=== PATIENT | male | born 1960 | race Caucasian/White ===

== ENCOUNTER 2016-12-19 10:23 | Inpatient (IN) | payer BC ==
--- NOTE | ~2016-12-19 | EGD ---
EGD REPORT [facility] [address] [place] [place] [address] NAME: JOSELUIS BEDOLLA : 58 STATUS : ADM IN PAT#: [id number] AGE: 56 ADM/REG DATE : 12/19/16 MR#: [id number] REPORT SERV DATE: 12/22/16 DICTATED BY: UMA CHENG DATE: 12/22/16 REPORT STATUS : Draft TRANSCRIBED BY: [facility] DATE: 12/22/16 [facility] Patient Name: Joseluis Bedolla Date of : 1960 Attending MD: UMA CHENG MD Procedure Date No Time: 12/22/2016 Procedure: ERCP Indications: Abnormal MRCP, Bile duct stone(s) Medicines: General Anesthesia Complications: No immediate complications. Procedure: Pre-Anesthesia Assessment: - ASA Grade Assessment: III - A patient with severe systemic disease. After obtaining informed consent, the scope was passed under direct vision. Throughout the procedure, the patient's blood pressure, pulse, and oxygen saturations were monitored continuously. The TJF Q180V [id number] was introduced through the mouth, and advanced to the duodenum and used to inject contrast into the bile duct. The ERCP was accomplished without difficulty. The patient tolerated the procedure well. Findings: The clam digger film was normal. The major papilla was normal. A 0.035 inch straight standard wire was passed into the biliary tree. The short-nosed traction autotome was passed over the guidewire and the bile duct was then deeply cannulated. Contrast was injected. The main bile duct was diffusely dilated, with a stone causing an obstruction. A 12 mm biliary sphincterotomy was made with a Autotome sphincterotome using ERBE electrocautery. There was no post-sphincterotomy bleeding. The middle third of the main bile duct contained filling defect(s) thought to be a stone. The biliary tree was swept with a 12 mm balloon starting at the bifurcation. All stones were removed. Impression: - The major papilla appeared normal. - The entire main bile duct was dilated, with a stone causing an obstruction. - A filling defect consistent with a stone was seen on the cholangiogram. - Choledocholithiasis was found. Complete removal was accomplished by biliary sphincterotomy and balloon extraction. Recommendation: - Avoid aspirin and nonsteroidal anti-inflammatory medicines. EGD REPORT [address] [address] NAME: JOSELUIS BEDOLLA : 58 STATUS : ADM IN [facility]#: [id number] AGE: 56 ADM/REG DATE : 12/19/16 MR#: [id number] REPORT SERV DATE: 12/22/16 DICTATED BY: UMA CHENG DATE: 12/22/16 REPORT STATUS : Draft TRANSCRIBED BY: [facility] DATE: 12/22/16 - Check amylase, lipase, liver enzymes (AST, ALT, alkaline phosphatase, bilirubin), hemogram with white blood cell count and platelets and electrolyte panel tonight. - Check amylase, lipase, liver enzymes (AST, ALT, alkaline phosphatase, bilirubin), hemogram with white blood cell count and platelets and electrolyte panel in the morning. - Clear liquid diet. - Continue present medications. - Return patient to [facility] for ongoing care. Procedure Code(s): --- Professional --- 95268, Endoscopic retrograde cholangiopancreatography (ERCP); with removal of calculi/debris from biliary/pancreatic duct(s) 04050, Endoscopic retrograde cholangiopancreatography (ERCP); with sphincterotomy/papillotomy Diagnosis Code(s): --- Professional --- K80.50, Calculus of bile duct without cholangitis or cholecystitis without obstruction K80.31, Calculus of bile duct with cholangitis, unspecified, with obstruction K80.33, Calculus of bile duct with acute cholangitis with obstruction K80.35, Calculus of bile duct with chronic cholangitis with obstruction K80.37, Calculus of bile duct with acute and chronic cholangitis with obstruction K80.51, Calculus of bile duct without cholangitis or cholecystitis with obstruction R93.2, Abnormal findings on diagnostic imaging of liver and biliary tract CPT copyright 2013 [employer]. All rights reserved. The codes documented in this report are preliminary and upon bite block maker review may be revised to meet current compliance requirements. Uma Cheng MD UMA CHENG MD 12/22/2016 4:25 PM This report has been signed electronically. Number of Addenda: 0 EGD REPORT [place] [address] [id number] NAME: JOSELUIS BEDOLLA : 58 STATUS : ADM IN [facility]#: [id number] AGE: 56 ADM/REG DATE : 12/19/16 MR#: [id number] REPORT SERV DATE: 12/22/16 DICTATED BY: UMA CHENG DATE: 12/22/16 REPORT STATUS : Draft TRANSCRIBED BY: [facility] DATE: 12/22/16 Note Initiated On: 12/22/2016 3:21 PM [place] [id number]
--- NOTE | ~2016-12-19 | CN ---
Consultation Report [facility] [address] [place]. [address] NAME: JOSELUIS PUGH : 58 STATUS : ADM IN [facility]#: [id number] AGE: 56 ADM/REG DATE : 12/19/16 MR#: [id number] REPORT SERV DATE: 12/19/16 DICTATED BY: CHEKO WOODRUFF DATE: 12/19/16 REPORT STATUS : Draft TRANSCRIBED BY: MODL DATE: 12/19/16 CONSULTATION DATE OF CONSULTATION: 12/19/2016 HISTORY OF PRESENT ILLNESS: This is a 56-year-old white male, whom I am seeing for Dr. Peguero with one-week history of abdominal pain, status post cholecystectomy three years ago. History of Hepatitis C was treated in 2013 and no recurrence. No nausea or vomiting, no fever, no bleeding. History of elbow surgery. CT done at [facility] earlier today showed dilated intra and extrahepatic biliary ducts. ALT was 640, AST 282, alkaline phosphatase 143, total bilirubin 4.7. White count of 8000, hemoglobin 7.4. Lipase normal at 36. PHYSICAL EXAMINATION: GENERAL: Well-nourished, well-nourished white male, alert and oriented x3. HEENT: Anicteric. CHEST: Clear. HEART: Regular rate and rhythm. No murmur or gallop. ABDOMEN: Soft, nontender. Present bowel sounds active. EXTREMITIES: Grossly intact. ASSESSMENT: 1. Abdominal pain and elevated LFTs as described above. CT with dilated biliary ducts intra and extrahepatic, status post cholecystectomy. 2. History of Hepatitis C with treatment. SUGGESTIONS: 1. MRCP is pending. 2. We will keep n.p.o. for possible ERCP in the a.m. Thank for this consultation. GALA/MARIE Cheko Woodruff M.D. / [id number] CC: Monica Fisher M.D. UNKNOWN Levar Peguero M.D.
--- NOTE | ~2016-12-19 | DS ---
Discharge Summary [facility] [address] [place]. [address] NAME: JOSELUIS PUGH : 58 STATUS : DIS IN PAT#: [id number] AGE: 56 ADM/REG DATE : 12/19/16 MR#: [id number] REPORT SERV DATE: 12/26/16 DICTATED BY: NICOLAS DANIELSON DATE: 12/25/16 REPORT STATUS : Draft TRANSCRIBED BY: MODL DATE: 12/25/16 ADMISSION DATE: 12/19/2016 DISCHARGE DATE: 12/25/2016 DISCHARGE DIAGNOSES: 1. Choledocholithiasis. 2. Post-ERCP pancreatitis. 3. History of hepatitis C. PERTINENT LABS: The patient arrived in the hospital with an elevated bilirubin of 3.0, by the time of discharge that improved to 1.5. He also had elevations in alkaline phosphatase as high as 208, it was 172 at the time of discharge. His ALT had also increased to 565, but it had improved to 231 by time of discharge. AST was elevated to 207 and improved to 60 by time of discharge. After his ERCP, the patient had an elevation in his amylase up to 1174 with an elevation of his lipase up 29,894. Both of these improved. By day of discharge, the patient had a lipase of 637. The patient had normal kidney function throughout hospital stay. He had a normal white blood cell count, normal hemoglobin, normal platelet count, and normal INR of 1.1. PERTINENT STUDIES: 1. MRCP demonstrated evidence of old cholecystectomy, but there was a stone within the common bile duct causing likely obstruction. 2. ERCP, performed by Dr. Peguero, showed a dilated bile duct with a stone causing obstruction and a filling defect by cholangiogram. There was complete removal with biliary sphincterotomy and balloon extraction. 3. A post-procedural CT scan of the abdomen and pelvis was performed on 12/25/[address] scan demonstrated no acute intraabdominal process. BRIEF SUMMARY OF HOSPITALIZATION: The patient came in with abdominal pain and evidence of elevated liver enzymes with particular elevation of the bilirubin. He was found on MRCP to have choledocholithiasis, and then on 12/22/2016, he underwent an ERCP under the care Dr. Peguero with extraction of the stone and sphincterotomy. The patient did have some increase in abdominal pain postprocedurally, consistent with a post-ERCP pancreatitis, but under supportive care, the patient's symptoms improved considerably. The patient gradually improved and had diet advanced. On the night of this discharge, he ate a full dinner at 5 p.m. in the evening, and by the time, I was evaluating him at 10:30 in the evening, he had no postprandial abdominal pain at all. No nausea and was feeling quite well. In regard to his history of hepatitis C, it was thought that this was completely treated and that elevation in liver enzymes were due to acute choledocholithiasis and not related to recurrence of hepatitis C. The patient was given followup instructions by Dr. Peguero, reuse technician, and recommended to be on a low-fat diet, per GI recommendations. Discharge Summary [address] [address] NAME: JOSELUIS PUGH : 58 STATUS : DIS IN [facility]#: [id number] AGE: 56 ADM/REG DATE : 12/19/16 MR#: [id number] REPORT SERV DATE: 12/26/16 DICTATED BY: NICOLAS DANIELSON DATE: 12/25/16 REPORT STATUS : Draft TRANSCRIBED BY: MARIE DATE: 12/25/16 DISCHARGE MEDICATION: Protonix 40 mg p.o. every other day. KPL/MARIE Nicolas Danielson M.D. / [id number] CC: Sid Menendez SAMUEL J Richard Sadowitz, M.D.
--- NOTE | ~2016-12-19 | HP ---
History And Physical [facility] [address] [place]. [address] NAME: JOSELUIS PUGH : 58 STATUS : ADM IN PAT#: [id number] AGE: 56 ADM/REG DATE : 12/19/16 MR#: [id number] REPORT SERV DATE: 12/19/16 DICTATED BY: MONICA YAN DATE: 12/19/16 REPORT STATUS : Draft TRANSCRIBED BY: MODL DATE: 12/19/16 DATE OF ADMISSION: 12/19/2016 HISTORY OF PRESENT ILLNESS: This is an extremely pleasant, 56-year-old male, who presented to [facility] as a direct admission from [facility]. The patient reported that he was not doing well for approximately one week. He was having episode of pain in the epigastric area on and off, and yesterday at 2300 hours, the pain became very severe. It is a pain like somebody punched you in the epigastric area, and it comes and goes, but when it comes, it stays there and then it gets better on its own. The patient reported that he had these episodes before also. He had cholecystectomy three years ago, and he had similar episodes after he had cholecystectomy. He was found to have elevated bilirubin and elevated liver enzymes at [facility] and transferring physician, Dr. Willett decided to transfer him to the [facility] to see education program associate for possible ERCP. His gastroenterologists, Dr. Pegueor and Dr. Reid, are covering for him today. The patient right now got better after he was given Dilaudid. He denies any pain right now. He is afebrile and doing well. PAST MEDICAL HISTORY: Known for history of cholecystectomy in 2013. History of hepatitis C, which was treated and he said that he was cured. The hepatitis C was treated by Dr. Peguero. History of elbow surgery as well. He denies any medical problems. He denies diabetes. No heart problems. No thyroid disease. MEDICATIONS: He does not take any medications except pantoprazole. SOCIAL HISTORY: No smoking. No alcohol. No recreational drug use. He is and has three children. FAMILY HISTORY: Mother at age of 89 from colon cancer. Father in 1971, he does not know what medical problems. ALLERGIES: HE HAD NO KNOWN DRUG ALLERGIES. REVIEW OF SYSTEMS: 14-point review of systems done and negative except what is stated in history of present illness. PHYSICAL EXAMINATION: GENERAL: Well-nourished, well-developed male, not in acute distress, resting quietly. VITAL SIGNS: Blood pressure 123/77, heart rate 60, respiratory rate 17, temperature 97.9, and oxygen saturation 96% on room air. HEENT: Head atraumatic, normocephalic. Conjunctivae clear. Pupils are equal and reactive to light and accommodation. Extraocular muscles are intact. NECK: Supple. Trachea is midline. No supraclavicular or cervical lymphadenopathy. LUNGS: Clear to auscultation bilaterally. Normal respiratory effort. CARDIOVASCULAR: Regular rate and rhythm. Point of maximal impulse is not displaced. ABDOMEN: Soft. There is mild tenderness in the epigastric area. There is no guarding and History And Physical [address] [address] NAME: JOSLEUIS PUGH : 58 STATUS : ADM IN [facility]#: [id number] AGE: 56 ADM/REG DATE : 12/19/16 MR#: [id number] REPORT SERV DATE: 12/19/16 DICTATED BY: MONICA YAN DATE: 12/19/16 REPORT STATUS : Draft TRANSCRIBED BY: MARIE DATE: 12/19/16 no rebound. Completely benign abdominal examination. No organomegaly. EXTREMITIES: No clubbing, cyanosis. No edema. SKIN: Normal color and turgor. PSYCHIATRIC: Normal mood and affect. NEUROLOGIC: Awake, alert, and oriented in time, place, and person. Muscle strength is 5/5 bilaterally in upper and lower extremities. IMAGING: CT scan of the abdomen and pelvis, which was done at [facility], showed intrahepatic and extrahepatic biliary ductal dilatation, status post cholecystectomy. LABORATORY DATA: His lab work, which was done at [facility], showed a total protein of 7.7, ALT 640, AST 282, alkaline phosphatase 143, total bilirubin 4.7, direct bilirubin 3.3, indirect bilirubin 1.4. Urinalysis was clear. No evidence of UTI. White count was 8, hemoglobin 17.4, hematocrit 48.6, platelet count 203, lactate acid level 1.55. His sodium was 140, potassium 3.7, ionized calcium 1.19, blood sugar 127, creatinine 1, chloride 97. Also his lipase was checked at [facility] and level was 36. ASSESSMENT AND PLAN: This is a very pleasant, 56-year-old male, who presented with epigastric right upper quadrant pain, intermittent in character, had this episode before also and picture is consistent with possible biliary duct stone. He has elevated ALT and AST, and he also has elevated direct bilirubin, so there is definitely a possibility of biliary obstruction with a dilated bile duct on the CT scan, so we are going to put him on IV fluid hydration, as well as we are going to put him on a clear liquid diet, and for his pain, we will give him reasonable control with intravenous Dilaudid as needed, it already helped at [facility]. I am going to order MRI on his abdomen for further delineation of the bile duct and to give us opportunity to visualize if there is a gallstone in the bile duct. At the same time, we will consult Dr. Reid who is on-call for Dr. Peguero. I put the patient on Protonix twice a day. We will keep him under observation status with intravenous fluid hydration. I will give him also antinausea medications as needed. We will recheck his liver function tests tomorrow. MG/MODL Monica Yan M.D. / [id number] CC: Monica Yan M.D.
[~2016-12-19 10:23] MED LIST: ADVAIR250 INH; MILK THISTLE; MULTIPLE VIT PO; PROTONIX20 MG PO; SUCR PO; VITC500 PO
[2016-12-19 12:07] LABS: INTERNATIONAL NORMAL RATI 1.1 UNITS (-); PARTIAL THROMBO TIME 25.6 SEC (22.5-37.2); PROTIME (NOT ORD) 13.7 SEC (12.0-14.5)
[2016-12-19] MEDS ORDERED: ADVIL PO (15:20)
[2016-12-19] MEDS ORDERED: PROTONIX PO (15:20)
[2016-12-19] MEDS ORDERED: VITC500 PO (15:21)
[2016-12-20 06:13] LABS: CALCIUM, SERUM 8.8 MG/DL (8.5-10.4); CHLORIDE, SERUM 108 MMOL/L (96-112); CREATININE 0.96 MG/DL (0.70-1.30); GFR AFRICAN AMERICAN 101 ML/MIN (>=60); GFR NON AFRICAN AMERICAN 87 ML/MIN (>=60); GLUCOSE, SERUM 89 MG/DL (60-99); POTASSIUM, SERUM 4.2 MMOL/L (3.5-5.3); SGOT(AST) 207 U/L (5-40); SGPT(ALT) 565 U/L (5-65); SODIUM, SERUM 144 MMOL/L (135-148); TOTAL PROTEIN 6.9 G/DL (6.0-8.5)
[2016-12-20 06:14] LABS: A/G RATIO 0.9 (0.7-1.9); ALBUMIN 3.3 G/DL (3.5-5.0); ALKALINE PHOSPHATASE 151 U/L (45-117); BUN (BLOOD UREA NITROGEN) 7 MG/DL (6-23); CO2 (CARBON DIOXIDE) 25 MMOL/L (24-34); GLOBULIN 3.6 G/DL (2.5-4.1)
[2016-12-20 07:57] LABS: BASOPHILS 0.2 %; BASOPHILS ABSOLUTE 0.01 10/3/uL (0.0-0.16); EOSINOPHILS 6.3 %; EOSINOPHILS ABSOLUTE 0.34 10/3/uL (0.0-0.53); HEMATOCRIT 42.3 % (40.0-51.0); HEMOGLOBIN 15.9 g/dL (13.6-17.8); IMMATURE GRANULOCYTES 0.4 %; IMMATURE GRANULOCYTES ABSOLUTE 0.02 10/3/uL (0.0-0.11); LYMPHOCYTES 36.6 %; LYMPHOCYTES ABSOLUTE 1.96 10/3/uL (0.67-4.30); MEAN CORPUS HGB CONC 37.6 g/dL (32.0-36.0); MEAN CORPUSCULAR HEMOGLOB 34.1 pg (26.0-34.0); MEAN CORPUSCULAR VOLUME 90.8 fL (80-100); MEAN PLATELET VOLUME 9.5 fL (9.2-13.0); MONOCYTES 9.9 %; MONOCYTES ABSOLUTE 0.53 10/3/uL (0.21-1.20); NEUTROPHILS 46.6 %; PLATELET COUNT 168 10/3/uL (150-400); RBC DISTRIBUTION WIDTH 14.1 % (12.0-16.0); RED CELL COUNT 4.66 10/6/uL (4.7-6.1); WHITE BLOOD CELLS 5.4 10/3/uL (4.5-10.5)
[2016-12-20 08:00] LABS: MANUAL DIFF NO %
[2016-12-20 08:08] LABS: PLATELET ESTIMATE ADQ (ADEQUATE); RBC MORPHOLOGY NORM (NORMAL)
[2016-12-21 05:50] LABS: BASOPHILS 0.2 %; BASOPHILS ABSOLUTE 0.01 10/3/uL (0.0-0.16); EOSINOPHILS ABSOLUTE 0.39 10/3/uL (0.0-0.53); HEMATOCRIT 41.8 % (40.0-51.0); HEMOGLOBIN 15.6 g/dL (13.6-17.8); IMMATURE GRANULOCYTES 0.2 %; IMMATURE GRANULOCYTES ABSOLUTE 0.01 10/3/uL (0.0-0.11); MEAN CORPUS HGB CONC 37.3 g/dL (32.0-36.0); MEAN CORPUSCULAR HEMOGLOB 33.8 pg (26.0-34.0); MEAN CORPUSCULAR VOLUME 90.5 fL (80-100); MEAN PLATELET VOLUME 8.5 fL (9.2-13.0); MONOCYTES 9.9 %; MONOCYTES ABSOLUTE 0.48 10/3/uL (0.21-1.20); NEUTROPHILS 42.7 %; NEUTROPHILS ABSOLUTE 2.08 10/3/uL (2.02-8.40); PLATELET COUNT 142 10/3/uL (150-400); RBC DISTRIBUTION WIDTH 13.7 % (12.0-16.0); RED CELL COUNT 4.62 10/6/uL (4.7-6.1); WHITE BLOOD CELLS 4.9 10/3/uL (4.5-10.5)
[2016-12-21 05:53] LABS: MANUAL DIFF NO %
[2016-12-21 06:09] LABS: A/G RATIO 0.9 (0.7-1.9); ALBUMIN 3.2 G/DL (3.5-5.0); BUN (BLOOD UREA NITROGEN) 9 MG/DL (6-23); CALCIUM, SERUM 8.3 MG/DL (8.5-10.4); CHLORIDE, SERUM 112 MMOL/L (96-112); CO2 (CARBON DIOXIDE) 27 MMOL/L (24-34); CREATININE 0.95 MG/DL (0.70-1.30); GFR AFRICAN AMERICAN 103 ML/MIN (>=60); GFR NON AFRICAN AMERICAN 89 ML/MIN (>=60); GLOBULIN 3.5 G/DL (2.5-4.1); GLUCOSE, SERUM 95 MG/DL (60-99); POTASSIUM, SERUM 3.8 MMOL/L (3.5-5.3); SGOT(AST) 89 U/L (5-40); SGPT(ALT) 386 U/L (5-65); SODIUM, SERUM 145 MMOL/L (135-148); TOTAL PROTEIN 6.7 G/DL (6.0-8.5)
[2016-12-21 06:15] LABS: ALKALINE PHOSPHATASE 139 U/L (45-117); TOTAL BILIRUBIN 1.5 MG/DL (0-1.2)
[2016-12-21 06:24] LABS: PLATELET ESTIMATE SLT DEC (ADEQUATE)
[2016-12-22 05:14] LABS: BASOPHILS 0.2 %; BASOPHILS ABSOLUTE 0.01 10/3/uL (0.0-0.16); EOSINOPHILS 9.2 %; EOSINOPHILS ABSOLUTE 0.51 10/3/uL (0.0-0.53); HEMATOCRIT 41.8 % (40.0-51.0); HEMOGLOBIN 15.9 g/dL (13.6-17.8); IMMATURE GRANULOCYTES 0.2 %; IMMATURE GRANULOCYTES ABSOLUTE 0.01 10/3/uL (0.0-0.11); LYMPHOCYTES 47.4 %; LYMPHOCYTES ABSOLUTE 2.63 10/3/uL (0.67-4.30); MEAN CORPUSCULAR HEMOGLOB 34.2 pg (26.0-34.0); MEAN CORPUSCULAR VOLUME 89.9 fL (80-100); MEAN PLATELET VOLUME 8.9 fL (9.2-13.0); MONOCYTES 9.4 %; MONOCYTES ABSOLUTE 0.52 10/3/uL (0.21-1.20); NEUTROPHILS 33.6 %; NEUTROPHILS ABSOLUTE 1.87 10/3/uL (2.02-8.40); PLATELET COUNT 147 10/3/uL (150-400); RBC DISTRIBUTION WIDTH 13.9 % (12.0-16.0); RED CELL COUNT 4.65 10/6/uL (4.7-6.1); WHITE BLOOD CELLS 5.6 10/3/uL (4.5-10.5)
[2016-12-22 05:25] LABS: A/G RATIO 0.9 (0.7-1.9); ALBUMIN 3.2 G/DL (3.5-5.0); ALKALINE PHOSPHATASE 129 U/L (45-117); BUN (BLOOD UREA NITROGEN) 8 MG/DL (6-23); CALCIUM, SERUM 8.7 MG/DL (8.5-10.4); CHLORIDE, SERUM 111 MMOL/L (96-112); CO2 (CARBON DIOXIDE) 27 MMOL/L (24-34); CREATININE 1.03 MG/DL (0.70-1.30); GFR AFRICAN AMERICAN 93 ML/MIN (>=60); GFR NON AFRICAN AMERICAN 80 ML/MIN (>=60); GLOBULIN 3.6 G/DL (2.5-4.1); GLUCOSE, SERUM 93 MG/DL (60-99); POTASSIUM, SERUM 4.2 MMOL/L (3.5-5.3); SGOT(AST) 58 U/L (5-40); SGPT(ALT) 306 U/L (5-65); SODIUM, SERUM 146 MMOL/L (135-148); TOTAL BILIRUBIN 1.4 MG/DL (0-1.2); TOTAL PROTEIN 6.8 G/DL (6.0-8.5)
[2016-12-22 05:31] LABS: MANUAL DIFF NO %
[2016-12-23 05:32] LABS: BASOPHILS 0.1 %; BASOPHILS ABSOLUTE 0.01 10/3/uL (0.0-0.16); EOSINOPHILS 0 %; HEMATOCRIT 42.4 % (40.0-51.0); HEMOGLOBIN 16.2 g/dL (13.6-17.8); IMMATURE GRANULOCYTES 0.2 %; IMMATURE GRANULOCYTES ABSOLUTE 0.02 10/3/uL (0.0-0.11); LYMPHOCYTES 14.2 %; LYMPHOCYTES ABSOLUTE 1.25 10/3/uL (0.67-4.30); MEAN CORPUS HGB CONC 38.2 g/dL (32.0-36.0); MEAN CORPUSCULAR HEMOGLOB 34.3 pg (26.0-34.0); MEAN CORPUSCULAR VOLUME 89.8 fL (80-100); MEAN PLATELET VOLUME 9.1 fL (9.2-13.0); MONOCYTES 10.3 %; MONOCYTES ABSOLUTE 0.91 10/3/uL (0.21-1.20); NEUTROPHILS 75.2 %; NEUTROPHILS ABSOLUTE 6.61 10/3/uL (2.02-8.40); PLATELET COUNT 181 10/3/uL (150-400); RBC DISTRIBUTION WIDTH 13.9 % (12.0-16.0); RED CELL COUNT 4.72 10/6/uL (4.7-6.1)
[2016-12-23 05:42] LABS: WHITE BLOOD CELLS 8.8 10/3/uL (4.5-10.5)
[2016-12-23 05:43] LABS: MANUAL DIFF NO %
[2016-12-23 06:15] LABS: ALBUMIN 3.3 G/DL (3.5-5.0); BUN (BLOOD UREA NITROGEN) 10 MG/DL (6-23); CHLORIDE, SERUM 103 MMOL/L (96-112); CO2 (CARBON DIOXIDE) 24 MMOL/L (24-34); CREATININE 1.04 MG/DL (0.70-1.30); GFR AFRICAN AMERICAN 92 ML/MIN (>=60); GFR NON AFRICAN AMERICAN 79 ML/MIN (>=60); GLOBULIN 3.4 G/DL (2.5-4.1); POTASSIUM, SERUM 4.2 MMOL/L (3.5-5.3); SGOT(AST) 162 U/L (5-40); SGPT(ALT) 333 U/L (5-65); TOTAL PROTEIN 6.7 G/DL (6.0-8.5)
[2016-12-23 06:19] LABS: ALKALINE PHOSPHATASE 208 U/L (45-117); DIRECT BILIRUBIN 3.4 MG/DL (0.0-0.4); GLUCOSE, SERUM 150 MG/DL (60-99); INDIRECT BILIRUBIN(NOT ORDER) 0.7 MG/DL (0.1-0.9); SODIUM, SERUM 138 MMOL/L (135-148); TOTAL BILIRUBIN 4.1 MG/DL (0-1.2)
[2016-12-23 06:43] LABS: PLATELET ESTIMATE ADQ (ADEQUATE); RBC MORPHOLOGY NORM (NORMAL)
[2016-12-24 07:16] LABS: BASOPHILS 0 %; EOSINOPHILS 1.3 %; EOSINOPHILS ABSOLUTE 0.09 10/3/uL (0.0-0.53); HEMATOCRIT 40.8 % (40.0-51.0); HEMOGLOBIN 14.8 g/dL (13.6-17.8); IMMATURE GRANULOCYTES 0.1 %; IMMATURE GRANULOCYTES ABSOLUTE 0.01 10/3/uL (0.0-0.11); LYMPHOCYTES 21.6 %; LYMPHOCYTES ABSOLUTE 1.48 10/3/uL (0.67-4.30); MEAN CORPUS HGB CONC 36.3 g/dL (32.0-36.0); MEAN CORPUSCULAR HEMOGLOB 33.1 pg (26.0-34.0); MEAN CORPUSCULAR VOLUME 91.3 fL (80-100); MEAN PLATELET VOLUME 8.9 fL (9.2-13.0); MONOCYTES 8.8 %; NEUTROPHILS 68.2 %; NEUTROPHILS ABSOLUTE 4.67 10/3/uL (2.02-8.40); PLATELET COUNT 156 10/3/uL (150-400); RBC DISTRIBUTION WIDTH 14.5 % (12.0-16.0); RED CELL COUNT 4.47 10/6/uL (4.7-6.1); WHITE BLOOD CELLS 6.9 10/3/uL (4.5-10.5)
[2016-12-24 07:17] LABS: MANUAL DIFF NO %
[2016-12-24 07:26] LABS: ALBUMIN 3.3 G/DL (3.5-5.0); ALKALINE PHOSPHATASE 199 U/L (45-117); BUN (BLOOD UREA NITROGEN) 7 MG/DL (6-23); CHLORIDE, SERUM 107 MMOL/L (96-112); CO2 (CARBON DIOXIDE) 27 MMOL/L (24-34); CREATININE 1.05 MG/DL (0.70-1.30); GFR AFRICAN AMERICAN 91 ML/MIN (>=60); GFR NON AFRICAN AMERICAN 78 ML/MIN (>=60); GLOBULIN 3.3 G/DL (2.5-4.1); POTASSIUM, SERUM 3.8 MMOL/L (3.5-5.3); SGOT(AST) 111 U/L (5-40); SGPT(ALT) 302 U/L (5-65); SODIUM, SERUM 141 MMOL/L (135-148); TOTAL PROTEIN 6.6 G/DL (6.0-8.5)
[2016-12-24 07:27] LABS: CALCIUM, SERUM 7.8 MG/DL (8.5-10.4); GLUCOSE, SERUM 95 MG/DL (60-99); INDIRECT BILIRUBIN(NOT ORDER) 0.9 MG/DL (0.1-0.9); TOTAL BILIRUBIN 1.9 MG/DL (0-1.2)
[2016-12-24 23:06] LABS: ALBUMIN 3.2 G/DL (3.5-5.0); TOTAL BILIRUBIN 1.5 MG/DL (0-1.2); TOTAL PROTEIN 6.8 G/DL (6.0-8.5)
[2016-12-24 23:08] LABS: DIRECT BILIRUBIN 0.7 MG/DL (0.0-0.4); INDIRECT BILIRUBIN(NOT ORDER) 0.8 MG/DL (0.1-0.9)
[2016-12-25 06:14] LABS: BASOPHILS 0.2 %; BASOPHILS ABSOLUTE 0.02 10/3/uL (0.0-0.16); EOSINOPHILS 1.9 %; EOSINOPHILS ABSOLUTE 0.19 10/3/uL (0.0-0.53); HEMATOCRIT 39.1 % (40.0-51.0); HEMOGLOBIN 14.3 g/dL (13.6-17.8); IMMATURE GRANULOCYTES 0.3 %; IMMATURE GRANULOCYTES ABSOLUTE 0.03 10/3/uL (0.0-0.11); LYMPHOCYTES 17.1 %; LYMPHOCYTES ABSOLUTE 1.72 10/3/uL (0.67-4.30); MEAN CORPUS HGB CONC 36.6 g/dL (32.0-36.0); MEAN CORPUSCULAR HEMOGLOB 33.3 pg (26.0-34.0); MEAN CORPUSCULAR VOLUME 91.1 fL (80-100); MEAN PLATELET VOLUME 9.1 fL (9.2-13.0); MONOCYTES 10.8 %; MONOCYTES ABSOLUTE 1.09 10/3/uL (0.21-1.20); NEUTROPHILS 69.7 %; NEUTROPHILS ABSOLUTE 7.03 10/3/uL (2.02-8.40); PLATELET COUNT 162 10/3/uL (150-400); RBC DISTRIBUTION WIDTH 14.3 % (12.0-16.0); RED CELL COUNT 4.29 10/6/uL (4.7-6.1)
[2016-12-25 06:24] LABS: MANUAL DIFF NO %; WHITE BLOOD CELLS 10.1 10/3/uL (4.5-10.5)
[2016-12-25 06:28] LABS: BUN (BLOOD UREA NITROGEN) 4 MG/DL (6-23); CALCIUM, SERUM 8.1 MG/DL (8.5-10.4); CHLORIDE, SERUM 111 MMOL/L (96-112); CREATININE 0.89 MG/DL (0.70-1.30); GFR AFRICAN AMERICAN 110 ML/MIN (>=60); GFR NON AFRICAN AMERICAN 95 ML/MIN (>=60); POTASSIUM, SERUM 3.5 MMOL/L (3.5-5.3); SODIUM, SERUM 144 MMOL/L (135-148)
[2016-12-25 06:31] LABS: CO2 (CARBON DIOXIDE) 22 MMOL/L (24-34); GLUCOSE, SERUM 128 MG/DL (60-99)
== END 2016-12-25 23:36 | disposition home or self-care (01) | DRG 444 ==
LOC: 5SO 10:23
PROVIDERS: Hospitalist; Internal Medicine; Internal Medicine Gastroenterology
PROC: 0FC98ZZ Extirpation of Matter from Common Bile Duct, Via Natural or Artificial Opening Endoscopic (ICD-10-PCS; principal; 2016-12-22 15:00)
DX: K80.50 Calculus of bile duct without cholangitis or cholecystitis without obstruction (principal); K85.80 Other acute pancreatitis without necrosis or infection; B18.2 Chronic viral hepatitis C; Z90.49 Acquired absence of other specified parts of digestive tract; Z80.0 Family history of malignant neoplasm of digestive organs
CPT/HCPCS: 74176; 74181; 74330; 80048; 80053; 80076; 82150; 82248; 83615; 83690; 85025; 85610; 85730; 93005; A9270-GY; C1769; C9113; J1170; J1956; J2250; J2370; J2405; J2710; J3010; Q9967